=== PATIENT | male | born 1965 | race Caucasian/White ===

== ENCOUNTER 2019-11-27 17:47 | Inpatient (IN) | payer BC ==
--- NOTE | 2019-11-27 22:36 | ED ---
Abdominal Pain/Male - HPI Summary HPI Summary: 54 year old M presenting [place] [facility] accompanied by complains of worsening RUQ pain and right flank pain x6 days. Patient reports weakness and difficulty ambulating secondary to the pain. He reports nausea which is worse with palpation of the abdomen, and decreased appetite. He denies vomiting, diarrhea, dysuria. Patient last ate 1999 today 11/27/2019. The patient rates the pain 5/10 in severity. Symptoms aggravated by palpation of abdomen. Symptoms alleviated by nothing. Patient states he had a gallstone stuck in his pancreas 14 years ago which required a procedure to have dislodged done [place] [facility] Patient notes that his current symptoms are similar to then. Cholecystectomy 27 years ago. Hx pancreatitis. Hx diabetes, hypertension, hypercholesterolemia. Hx [place] 13 years ago. Medications reviewed. Allergies noted. No alcohol. No smoking. - History of Current Complaint Chief Complaint: EDAbdPain Stated Complaint: RT FLANK PAIN PER PT Time Seen by Provider: 11/27/19 22:29 Hx Obtained From: Patient Onset/Duration: Lasting Days - 6, Still Present Timing: Constant Severity Currently: Moderate Pain Intensity: 7 Pain Scale Used: 0-10 Numeric Location: Discrete At: RUQ, Flank - right Aggravating Factor(s): Other: - palpation of abdomen Alleviating Factor(s): Nothing Associated Signs And Symptoms: Positive: Negative - vomiting, diarrhea, dysuria , Other - nausea, decreased appetite - Allergies/Home Medications Allergies/Adverse Reactions: Allergies Allergy/AdvReac Type Severity Reaction Status Date / Time amoxicillin Allergy Anaphylatic Verified 11/27/19 18:00 Shock PMH/Surg Hx/FS Hx/Imm Hx Endocrine/Hematology History: Reports: Hx Diabetes, Other Endocrine/ Hematological Disorders - hyperlipidemia Cardiovascular History: Reports: Hx Hypercholesterolemia, Hx Hypertension, Hx Myocardial Infarction GI History: Reports: Other GI Disorders - pancreatitis, gallstones Neurological History: Denies: Hx Seizures - Surgical History Surgery Procedure, Year, and Place: cholecystectomy 1992 Infectious Disease History: No Infectious Disease History: Denies: Traveled Outside the [place] in Last 30 Days - Family History Known Family History: Positive: Cardiac Disease - father [place] - Social History Alcohol Use: None Substance Use Type: Reports: None Hx Tobacco Use: No Smoking Status (MU): Never Smoked Tobacco Review of Systems Positive: Abdominal Pain - RUQ, Nausea, Other - decreased appetite. Negative: Vomiting, Diarrhea Positive: flank pain - right. Negative: dysuria All Other Systems Reviewed And Are Negative: Yes Physical Exam - Summary Physical Exam Summary: Appearance: Well-appearing, Well-nourished, lying in bed comfortably Skin: Warm, dry, no obvious rash Eyes: sclera anicteric, no conjunctival pallor ENT: mucous membranes moist, pharynx appears normal Neck: Supple, nontender Respiratory: Clear to auscultation, no signs of respiratory distress Cardiovascular: Normal S1, S2. No murmurs. Normal distal pulses in tibial and radial bilaterally. Abdomen: Soft, nontender, normal active bowel sounds present Musculoskeletal: Normal, Strength/ROM Intact Neurological: A&Ox3, awake and alert, mentation is normal, speech is fluent and appropriate Psychiatric: affect is normal, does not appear anxious or depressed Triage Information Reviewed: Yes Vital Signs On Initial Exam: Initial Vitals Temp Pulse Resp BP Pulse Ox 97.0 F 89 18 151/97 95 11/27/19 17:58 11/27/19 17:58 11/27/19 17:58 11/27/19 17:58 11/27/19 17:58 Vital Signs Reviewed: Yes Procedures - Sedation Patient Received Moderate/Deep Sedation with Procedure: No Diagnostics - Vital Signs Vital Signs Temp Pulse Resp BP Pulse Ox 11/27/19 21:56 97.6 F 97 18 146/104 94 11/27/19 19:57 98.3 F 94 20 133/85 94 11/27/19 17:58 97.0 F 89 18 151/97 95 - Laboratory Result Diagrams: 11/27/19 22:31 11/28/19 03:02 Lab Statement: Any lab studies that have been ordered have been reviewed, and results considered in the medical decision making process. - CT ABD/PEL CT Interpretation Completed By: Radiologist Summary of CT Findings: 1. No CT findings to correlate with patient's symptomatology. 2. Right middle lobe pulmonary nodule. Based on current Chantal criteria, if low risk no followup indicated. 3. Indeterminate left adrenal nodule. Recommend adrenal CT. (Dino Hernandez, ACR. White Paper, 2017). ED PHYSICIAN HAS REVIEWED THIS REPORT. Re-Evaluation - Re-Evaluation First Eval Re-Evaluation Time: 23:00 Comment: aware of sodium 118 Abdominal Pain Male Course/Dx - Course Course Of Treatment: 54 y/o M with PMHx pancreatitis, diabetes, hypertension, hypercholesterolemia, [place], and PSHx cholecystectomy complains of worsening RUQ pain, right flank pain, weakness, difficulty ambulating, nausea, decreased appetite x6 days. Patient states he had a gallstone stuck in his pancreas 14 years ago which required a procedure to have dislodged. Current symptoms are similar to then. No alcohol. No smoking. Physical exam unremarkable. Bloodwork results with no significant abnormalities except for sodium 118, chloride 88, carbon dioxide 20, creatinine 1.66, glucose 240, total bilirubin 1.30, alkaline phosphatase 107, lipase 98. Toxicology results with no significant abnormalities. ABD/PEL CT shows per radiologist: 1. No CT findings to correlate with patient's symptomatology. 2. Right middle lobe pulmonary nodule. Based on current Chantal criteria, if low risk no followup indicated. 3. Indeterminate left adrenal nodule. Recommend adrenal CT. (Dino Hernandez, ACR. White Paper, 2017). In the ED course, the patient was given normal saline fluids. Spoke with Dr. Cerna hospitalist who agrees to admit patient. - Diagnoses Provider Diagnoses: Abdominal pain, Acute kidney injury, Hyponatremia - Provider Notifications Discussed Care Of Patient With: Theresa Cerna Time Discussed With Above Provider: 02:20 Instructed by Provider To: Admit As Inpatient Discharge ED - Sign-Out/Discharge Documenting (check all that apply): Patient Departure - Discharge Plan Condition: Stable Disposition: ADMITTED TO [facility] - Billing Disposition and Condition Condition: STABLE Disposition: Admitted to [facility] - Attestation Statements Document Initiated by Sameer: Yes Documenting Scribe: Rachael Green Provider For Whom Sameer is Documenting (Include Credential): MD Chava Salazaribmarkell Attestation: Rachael Wynn, scribed for Adolfo Rose MD on 11/28/19 at 0542. Scribe Documentation Reviewed: Yes Provider Attestation: The documentation as recorded by the Rachael escoto accurately reflects the service I personally performed and the decisions made by , Adolfo Rose MD Status of Scribe Document: Viewed
[2019-11-27 23:05] LABS: Alcohol < 10 mg/dL (<10)
[2019-11-27 23:33] LABS: Albumin 4.6 g/dL (3.2-5.2); Albumin/Globulin Ratio 1.7 (1-3); Alkaline Phosphatase 107 U/L (34-104); Anion Gap 10 mmol/L (2-11); CO2 Carbon Dioxide 20 mmol/L (22-32); Chloride 88 mmol/L (101-111); EGFR African American 52.7 (>60); EGFR Non-African American 43.6 (>60); Globulin 2.7 g/dL (2-4); Glucose 240 mg/dL (70-100); Sodium 118 mmol/L (135-145); Total Protein 7.3 g/dL (6.4-8.9)
[2019-11-27 23:37] LABS: Hematocrit 42 % (42-52); Mean Corpuscular Volume 85 fL (80-94); Mean Platelet Volume 8.5 fL (7.4-10.4); Nucleated Red Blood Cells % 0.1; Platelet Count 332 10^3/uL (150-450); Red Blood Count 4.95 10^6 /uL (4.18-5.48); Red Cell Distribution Width 14 % (10-15); White Blood Count 8.2 10^3/uL (3.5-10.8)
[2019-11-27 23:40] LABS: Mean Corpuscular HGB Conc 34 g/dL (31-36); Mean Corpuscular Hemoglobin 28 pg (27-31)
[2019-11-28] MEDS ORDERED: Iodixanol* (CONTRAST) 320 MG/ML 100 ML SDV IV ONE (00:03)
[2019-11-28] MEDS: NS 0.9% 1000 ML** 2,000 ML IV ONE ×2 (00:08→01:05)
[2019-11-28 01:47] LABS: BUN/Creatinine Ratio 13.3 (8-20); Blood Urea Nitrogen 22 mg/dL (6-24)
[2019-11-28 02:38] LABS: ALT 23 U/L (7-52)
[2019-11-28] MEDS ORDERED: Ondansetron INJ* 2 MG/ML VIAL IV PRN (02:48)
[2019-11-28] MEDS ORDERED: Morphine INJ* 2 MG/ML 1 ML SYRINGE (TWO MG - NEW SYRINGE VERSION) IV PRN (02:48)
[2019-11-28] MEDS ORDERED: Dextrose 50% Syringe 50 ML* 25 GM/50 ML SYRINGE IV PUSH PRN (02:58)
[2019-11-28] MEDS ORDERED: NS 0.9% 1000 ML** 1,000 ML IV SCH (03:00)
[2019-11-28 03:30] LABS: Anion Gap 6 mmol/L (2-11); CO2 Carbon Dioxide 19 mmol/L (22-32); Chloride 95 mmol/L (101-111); Sodium 120 mmol/L (135-145)
[2019-11-28 03:43] LABS: Cholesterol 836 mg/dL; Triglycerides 6389 mg/dL
[2019-11-28 03:48] LABS: HDL Cholesterol 25.2 mg/dL
--- NOTE | 2019-11-28 05:05 | HP ---
CC: Dr. Degroot * HISTORY AND PHYSICAL: DATE OF ADMISSION: 11/28/19 PRIMARY CARE PROVIDER: Dr. Degroot. CHIEF COMPLAINT: Abdominal pain and weakness. HISTORY OF PRESENT ILLNESS: Mr. Bucio is a 54-year-old male, who has a history of type 2 diabetes, hypertension, hyperlipidemia, and anxiety, who presented to the emergency room with complaints of pain in the epigastrium and in the back. The patient states that his symptoms began this past , 11/22/19. He states the pain comes and goes. He notes that it is worse with eating but only slightly so. There is otherwise no rhyme or reason to the pain coming on. On Tuesday morning, 11/27/19, the patient noted while driving to work that the pain was more severe. He felt that something was not right. He states that he worked all day but felt very weak. Typically, he walks around a lot, however, did not feel he was able to do so on 11/27/19. The patient denies any fevers or chills. He denies any alcohol use. He has not had a recent lipid panel. He does not feel dizzy. The patient does state that he had pancreatitis in 2000 and this feels similar. PAST MEDICAL HISTORY: 1. Hypertension. 2. Hyperlipidemia. 3. Type 2 diabetes. 4. Anxiety. PAST SURGICAL HISTORY: 1. Cholecystectomy. 2. Surgery to the left side of the skull as a teenager. MEDICATIONS: 1. Metformin. 2. Lisinopril. 3. Victoza. 4. Celexa 40 mg p.o. daily. The patient does not know the doses of his other medications. ALLERGIES: AMOXICILLIN. FAMILY HISTORY: Mom at the age of 68. She had both CVA and coronary disease. Dad at the age of 68 as well. He also had coronary disease and had a CVA. SOCIAL HISTORY: The patient does not smoke. He does not drink. 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 He is . He has 2 children. His , Kavita, would be his healthcare proxy. REVIEW OF SYSTEMS: Complete 11-system review of systems is obtained. Pertinent positives and negatives are as per HPI and otherwise negative. PHYSICAL EXAMINATION GENERAL: The patient is a well-developed, middle-aged male, seen sleeping in the stretcher, awakening easily to voice and in no acute distress. VITAL SIGNS: Blood pressure 147/75, pulse 73, respirations 18, temp 97.6, O2 sat 95% on room air. HEENT: Pupils are equal. Extraocular muscles are intact. Oropharynx is clear and moist. There is no submandibular, cervical, or supraclavicular adenopathy. PULMONARY: Lungs are clear to auscultation bilaterally. CARDIAC: Normal S1, S2. Regular rate and rhythm. I do not appreciate any murmurs. There is no lower extremity edema. ABDOMEN: Bowel sounds are present. Abdomen is soft, nontender, nondistended. MUSCULOSKELETAL: There is no cyanosis or clubbing of the digits. There is full active range of motion of all 4 extremities. NEURO: Cranial nerves II through XII are grossly intact. Sensation is intact to light touch throughout. Strength is 5/5 and symmetric in both upper and lower extremities bilaterally. PSYCH: The patient is alert. He is oriented x3. Affect appears appropriate. SKIN: Visible areas of skin are warm, dry, and without rash. DIAGNOSTIC STUDIES/LAB DATA: WBC 8.2, hemoglobin 14.0, hematocrit 42, platelets 332. Sodium 118, potassium unable to be performed, chloride 88, CO2 20, BUN 22, creatinine 1.66, glucose 240, calcium 9.0. Bilirubin 1.3, AST not able to be performed, ALT 23, alk phos 107. Albumin 4.6. Lipase 98. Serum alcohol less than 10. CT abdomen and pelvis: The liver is normal. There is no mass. There is a surgically absent gallbladder. There is no intra or extrahepatic biliary dilation. The pancreas is normal without any ductal dilatation. There is a left adrenal nodule measuring 2.2 cm in 82 Hounsfield units. There is no right adrenal nodule. Stomach is incompletely distended but grossly normal. There is normal caliber small bowel. There are no colonic masses or segmental wall thickening. There is a normal caliber appendix without wall thickening. There is a right middle lobe pulmonary nodule. It is recommended that the patient have an adrenal CT to further evaluate that incidental finding. ASSESSMENT AND PLAN: Mr. Bucio is a 54-year-old male who has a history of hypertension, hyperlipidemia, type 2 diabetes, and anxiety, who presented to the emergency room with complaints of intermittent abdominal pain over the last approximately 1 week as well as weakness and was found to have hyponatremia. 1. Hyponatremia: This is the patient's biggest issue at this point. He has received 2 L of fluid in the emergency room. His sodium will be rechecked now. I suspect his hyponatremia is secondary to the volume depletion as the patient 's creatinine is also elevated. I will, however, add serum osm to labs obtained in the emergency room. Additionally, he will have urine osm and urine sodium to help identify the cause of his hyponatremia. It is unclear how long he was hyponatremic; therefore, we must be cautious in raising the sodium level. I will put the patient on a clear liquid diet for now. He will have p.r.n. morphine. I am going to get a followup lipase later today. 2. Abdominal pain: The cause of this pain is not completely clear. His lipase is very mildly elevated. I doubt pancreatitis as I would expect that the patient would have persistent pain and not periods of time where there was no pain. If his pain returns, GI or surgical consultation could be requested. 3. Type 2 diabetes: The patient states that he takes metformin at home. I am holding this for now. He will be placed on a lispro sliding scale q.a.c. and h.s. 4. Hypertension: Pressures are moderately elevated at this time. I am holding his usual dose of lisinopril. This can likely be added back relatively soon. Accurate medication list will need to be obtained. 5. Hyperlipidemia: I am checking a lipid profile. He does not remember the name of the medication that he takes for his cholesterol. 6. Anxiety: We will continue his usual dose of Celexa. 7. DVT prophylaxis: According to the Adult Thrombosis Prophylaxis Risk Factor Assessment Guide, the patient has a total risk factor score of 2, making him moderate risk. He will be placed on Lovenox 40 mg subcutaneous daily for DVT prophylaxis. 8. Code status is full. TIME SPENT: Sixty-five minutes was spent admitting this patient. [id number]/[facility] #: [id number] ISA
[2019-11-28 07:56] LABS: LDL Cholesterol Direct 97 mg/dL
[2019-11-28] MEDS: Citalopram TAB* 40 MG PO SCH (08:47)
[2019-11-28] MEDS: Insulin LISPRO* 1 UNITS UNIT SUBCUT SCH ×4 (08:48→21:09)
[2019-11-28] MEDS ORDERED: Lactated Ringers 1000 ML Bag* 1,000 ML IV ONE (09:21)
--- NOTE | 2019-11-28 09:55 | PN ---
Subjective Date of Service: 11/28/19 Interval History: Pt has had epigastric pain radiating to back when ever he eats x 1 week. Regular BM's Pain is better today, denies nausea Unsure if his lipid profile was ever checked before Objective Active Medications: Citalopram Hydrobromide (Celexa Tab*) 40 mg PO DAILY [facility] Last Admin: 11/28/19 08:47 Dose: 40 mg Dextrose (D50w Syringe 50 Ml*) 12.5 gm IV PUSH .FOR FS < 60 - SS PRN PRN Reason: FS < 60 Enoxaparin Sodium (Lovenox(*)) 40 mg SUBCUT Q24H [facility] Fenofibrate (Tricor) 54 mg PO DAILY [facility] Lactated Ringer's (Lactated Ringers 1000 Ml Bag*) 1,000 mls @ 100 mls/hr IV ONCE ONE Stop: 11/28/19 19:20 Last Admin: 11/28/19 09:39 Dose: 100 mls/hr Insulin Human Lispro (Humalog*) 0 units SUBCUT ACHS [facility]; Protocol Last Admin: 11/28/19 08:48 Dose: 4 units Morphine Sulfate (Morphine Inj (Syringe))*) 2 mg IV Q4H PRN PRN Reason: PAIN - SEVERE Ondansetron HCl (Zofran Inj*) 4 mg IV Q6H PRN PRN Reason: NAUSEA Vital Signs - 8 hr 11/28/19 11/28/19 11/28/19 02:00 02:22 02:32 Temperature Pulse Rate 67 71 73 Respiratory Rate Blood Pressure 150/92 147/75 (mmHg) O2 Sat by Pulse 95 95 95 Oximetry 11/28/19 11/28/19 11/28/19 03:00 03:02 03:32 Temperature Pulse Rate 68 70 71 Respiratory Rate Blood Pressure 133/76 152/96 (mmHg) O2 Sat by Pulse 95 94 92 Oximetry 11/28/19 11/28/19 11/28/19 04:00 04:02 04:32 Temperature Pulse Rate 73 72 Respiratory Rate Blood Pressure 151/90 145/94 (mmHg) O2 Sat by Pulse 94 92 Oximetry 11/28/19 11/28/19 11/28/19 05:02 05:09 07:20 Temperature 98 F Pulse Rate 75 Respiratory 16 18 18 Rate Blood Pressure 149/94 (mmHg) O2 Sat by Pulse 96 Oximetry 11/28/19 11/28/19 07:39 08:15 Temperature Pulse Rate 68 Respiratory Rate Blood Pressure 130/82 (mmHg) O2 Sat by Pulse 96 Oximetry Oxygen Devices in Use Now: None Appearance: 54 yo M in nAD, aAOx3 Eyes: No Scleral Icterus, PERRLA Ears/Nose/Mouth/Throat: NL Teeth, Lips, Gums, Mucous Membranes Moist Neck: NL Appearance and Movements; NL JVP Respiratory: Symmetrical Chest Expansion and Respiratory Effort, Clear to Auscultation Cardiovascular: NL Sounds; No Murmurs; No JVD, RRR Abdominal: - - epigastric tenderness, no rebound, no guarding, BS+ Lymphatic: No Cervical Adenopathy Extremities: No Edema Skin: No Rash or Ulcers, No Nodules or Sclerosis Neurological: Alert and Oriented x 3, NL Muscle Strength and Tone Result Diagrams: 11/27/19 22:31 11/28/19 03:02 Assess/Plan/Problems-Billing Assessment: 54 yo M with h/o DM, cholecystectomy and later on pancreatitis related to CBD obstruction with stone s/p ERCP - Patient Problems (1) Acute pancreatitis Comment: mild with triglycerides of >6000-mary the cause of the problem CT shows no CBD obstrution, but incidental 2.2 cm adrenal nodule and 4 mm lung nodule -cont clears PO -cont IVF -start Tricor (2) DM2 (diabetes mellitus, type 2) Comment: holding metformin -start Lantus and ISS (3) High triglycerides Comment: mary familial triglyceridemia: both parents in their 60's due to vascular complications cont tricor, could add on Lipitor cont IVF and glucose control check [id number] DM control likely contributed (4) Hyponatremia Comment: partially due to dehydration and partialy due to pseudohyponatremia ( corrrected Na level with condiseration fo triglycerides of >6000 is at approx 132 today) (5) DVT prophylaxis Comment: lovenox Status and Disposition: inpatient
[2019-11-28] MEDS: Insulin GLARGINE(*) 1 UNITS UNIT SUBCUT SCH (10:19)
[2019-11-28 11:34] LABS: Urine Appearance Clear; Urine Bilirubin Negative (Negative); Urine Blood Negative (Negative); Urine Color Straw; Urine Glucose 3+(>=500 mg/dL) (Negative); Urine Ketones Negative (Negative); Urine Nitrite Negative (Negative); Urine Protein Negative (Negative); Urine Specific Gravity 1.015 (1.010-1.030); Urine Urobilinogen Negative (Negative)
[2019-11-28 11:42] LABS: Urine Benzodiazepine Screen None Detected (None Detect); Urine Opiates Screen None Detected (None Detect)
[2019-11-28 12:13] LABS: BUN/Creatinine Ratio 17.1 (8-20); Blood Urea Nitrogen 14 mg/dL (6-24); CO2 Carbon Dioxide 21 mmol/L (22-32); Calcium 7.9 mg/dL (8.6-10.3); Chloride 96 mmol/L (101-111); EGFR African American 118.9 (>60); EGFR Non-African American 98.3 (>60); Glucose 243 mg/dL (70-100); Sodium 123 mmol/L (135-145)
[2019-11-28 12:14] LABS: Anion Gap 6 mmol/L (2-11)
[2019-11-28 16:47] LABS: CO2 Carbon Dioxide 22 mmol/L (22-32); Chloride 98 mmol/L (101-111); EGFR African American 131.8 (>60); EGFR Non-African American 108.9 (>60); Glucose 201 mg/dL (70-100); Sodium 125 mmol/L (135-145)
[2019-11-28 17:16] LABS: Blood Urea Nitrogen 12 mg/dL (6-24)
[2019-11-28 17:17] LABS: Anion Gap 5 mmol/L (2-11)
[2019-11-28] MEDS: Acetaminophen TAB* 325 MG PO PRN (20:53)
[2019-11-28] MEDS ORDERED: Enoxaparin(*) 40 MG/0.4 ML SYR SUBCUT SCH (22:00)
[2019-11-29 06:47] LABS: Albumin 3.6 g/dL (3.2-5.2); Albumin/Globulin Ratio 1.5 (1-3); Calcium 8.3 mg/dL (8.6-10.3); Globulin 2.4 g/dL (2-4)
[2019-11-29 06:48] LABS: ALT 21 U/L (7-52); Alkaline Phosphatase 80 U/L (34-104); Anion Gap 6 mmol/L (2-11); BUN/Creatinine Ratio 11.1 (8-20); Blood Urea Nitrogen 12 mg/dL (6-24); CO2 Carbon Dioxide 24 mmol/L (22-32); Chloride 99 mmol/L (101-111); EGFR African American 86.5 (>60); EGFR Non-African American 71.5 (>60); Glucose 218 mg/dL (70-100); Sodium 129 mmol/L (135-145); Triglycerides 4396 mg/dL
[2019-11-29 07:59] VITALS: BP 160/90
[2019-11-29] MEDS: Citalopram TAB* 40 MG PO SCH (09:26)
[2019-11-29] MEDS: Insulin GLARGINE(*) 1 UNITS UNIT SUBCUT SCH (09:27)
[2019-11-29] MEDS: Insulin LISPRO* 1 UNITS UNIT SUBCUT SCH (09:27)
[2019-11-29] MEDS: Acetaminophen TAB* 325 MG PO PRN (09:34)
--- NOTE | 2019-11-29 10:14 | DS ---
DISCHARGE SUMMARY: ADDENDUM: ADDENDUM: Please note that on the day of discharge, the patient had minimal epigastric tenderness and he did not have any abdominal pain that started when eating. Over the course of his hospital stay, he had very mild symptoms of pancreatitis with lipase only slightly elevated at admission. Due to that, aggressive management with insulin for his mild pancreatitis and triglyceridemia was not instituted. Please also note that the patient was noted to have one potassium level of 5.9, but the other levels were not able to be done due to hemolysis. The 5.9 obtained on 11/28/19 also thought to be due to hemolyzed specimen. At this point, we are unable to provide specific potassium level at discharge, but there is no suggestion in the patient's clinical course that he is hyperkalemic. Due to that, his JEREMÍAS inhibitor can be restarted at discharge. [id number]/[facility] #: [id number] MTDD
--- NOTE | 2019-11-29 11:48 | DS ---
ADDENDUM IS NOW INCLUDED ON THIS REPORT CC: Dr. Degroot * DISCHARGE SUMMARY: DATE OF ADMISSION: 11/28/19 DATE OF DISCHARGE: 11/29/19 PRIMARY CARE PROVIDER: Dr. Degroot. DISCHARGE DIAGNOSES: 1. Acute pancreatitis due to hypertriglyceridemia. 2. Uncontrolled diabetes type 2 with hemoglobin of A1c noted to be at 12.9. 3. 2.2 cm left adrenal nodule that needs to be further evaluated with a dedicated CT of the adrenals. 4. A 4 mm lung nodule noted incidentally on CT of the abdomen and pelvis, likely no followup required. SECONDARY DIAGNOSES: 1. Hypertension. 2. Hyperlipidemia. 3. Diabetes type 2. 4. Anxiety. 5. Status post cholecystectomy. 6. History of pancreatitis, was related to common bile duct obstruction in the past. MEDICATIONS AT DISCHARGE: 1. Lipitor 20 mg daily. 2. Fenofibrate 54 mg daily. 3. Glyburide 2.5 mg daily. 4. Metformin 1000 mg b.i.d. 5. Lisinopril 10 mg daily. 6. Celexa 40 mg daily. LABORATORY DATA AND STUDIES PERFORMED DURING HOSPITAL STAY: On 11/29/19, sodium of 129, potassium unable to obtain due to high triglycerides, chloride of 99, carbon dioxide of 24, BUN 12, creatinine 1.08. Liver function tests are unremarkable apart from AST that was unable to be obtained due to high triglycerides. Triglyceride level was 4396 on day of discharge and on admission it was 6389. Hemoglobin A1c was 12.9. CBC on admission showed white blood cell count of 8.2, hemoglobin 14, hematocrit 42, platelets of 336. Lipase at admission was 98; on 11/28/19, it was 71. CT of the abdomen and pelvis obtained on 11/27/19, impression: "No CT findings to correlate with patient's symptomatology. Right middle lobe pulmonary nodule ; based on current criteria, it is low risk, no followup indicated, it was 0.4 cm. Indeterminate left adrenal nodule measuring 2.2 cm and 82 Hounsfield units. Recommend adrenal CT for further evaluation. HOSPITALIZATION COURSE: Maximo Bucio is a 54-year-old male with history of diabetes, hyperlipidemia, who was admitted to the hospital complaining of several days of epigastric pain radiating to the back. The patient was noted to have high triglyceride level and dehydration and developed hyponatremia. Part of the hyponatremia was pseudohyponatremia due to high triglyceride level. The patient was treated with insulin throughout the hospital stay. He was placed on Tricor and also started on Lipitor at discharge. His hemoglobin A1c was noted to be 12.9 and a nutritional consult was obtained. The patient was educated about a low fat and diabetic diet. He also was advised to lose weight. He is going to be started on glyburide at the time of discharge, but with hemoglobin A1c of 12.9 and high triglycerides, it is possible that he will need to be treated with insulin in the future if he does not control his diet and lose weight. The patient was educated about that and he is going to be following up with Dr. Degroot in 4 to 7 days. The patient has incidental findings on the CT of 2.2 cm left adrenal nodule that needs to be followed up with dedicated CT of the adrenals, which can be done as an outpatient. His 4 mm lung nodule likely does not need to be followed up since the patient has not smoked in his life and there is no family history of lung cancer. By the time of discharge, the patient still has mild epigastric tenderness on palpation. He also has tenderness right on palpation of his right scapular region likely related to musculoskeletal problem. He is recommended to be on a bland diet for 2 days and then advance as tolerated to diabetic and low-fat diet. PHYSICAL EXAM AT THE TIME OF DISCHARGE: Blood pressure of 158/89, heart rate of 66 and regular, respiratory rate 12, oxygen saturation 96% on room air, temperature 98.6. General: The patient is a pleasant 54-year-old male who is in no acute distress. The patient is alert and oriented x3. HEENT: Head: Atraumatic, normocephalic. Eyes: Pupils equal and reactive to light and accommodation. Oropharynx clear. Mucosa moist. Neck: Supple. No JVD. No bruits bilaterally. Cardiovascular: Regular rate and rhythm. No murmur. Respiratory: Clear to auscultation bilaterally. Abdomen: Soft, mildly tender in the epigastric region. No rebound, no guarding. Bowel sounds present in all 4 quadrants. Extremities: There is no edema. Pulses +2 bilaterally. No clubbing or cyanosis. On palpation of the back, the patient has tenderness on palpation of one of the back muscles overlying the right scapula. Psychiatric evaluation: Pleasant, cooperative with evaluation, oriented x3, with no evidence of anxiety or depression. Please note that this is a short summary of the patient's hospital stay. Please refer to further medical records for details. TIME SPENT: Approximately 45 minutes was spent on the patient's discharge. ADDENDUM: Please note that on the day of discharge, the patient had minimal epigastric tenderness and he did not have any abdominal pain that occurred when eating. Over the course of his hospital stay, he had very mild symptoms of pancreatitis with lipase only slightly elevated at admission. Due to that, aggressive management with insulin for his mild pancreatitis and triglyceridemia was not instituted. Please also note that the patient was noted to have one potassium level of 5.9, but the other levels were not able to be done due to hemolysis. The 5.9 obtained on 11/28/19 also thought to be due to hemolyzed specimen. At this point, we are unable to provide specific potassium level at discharge, but there is no suggestion in the patient's clinical course that he is hyperkalemic. Due to that, his JEREMÍAS inhibitor can be restarted at discharge. [id number]/[facility] #: [id number] A- [id number]/[facility] #: [id number] ISA
--- NOTE | 2019-12-06 10:15 | DS ---
DISCHARGE SUMMARY: ADDENDUM: DISPOSITION AT DISCHARGE: Home. CONDITION AT DISCHARGE: Stable. [id number]/[facility] #: [id number] ISA
== END 2019-11-29 10:55 | disposition home or self-care (01) | DRG 282 ==
LOC: ED 17:47 → INTOOBSV 11-28 02:48 → OBSVTOIN 11-28 02:48 → SSU 11-28 02:48
PROVIDERS: ADMIT Hospitalist; ATTEND Internal Medicine
DX: K85.80 Other acute pancreatitis without necrosis or infection (principal); E87.1 Hypo-osmolality and hyponatremia; E78.1 Pure hyperglyceridemia; E86.0 Dehydration; E78.00 Pure hypercholesterolemia, unspecified; E11.9 Type 2 diabetes mellitus without complications; E27.8 Other specified disorders of adrenal gland; R91.1 Solitary pulmonary nodule; I10 Essential (primary) hypertension; F41.9 Anxiety disorder, unspecified; Z90.49 Acquired absence of other specified parts of digestive tract; Z87.19 Personal history of other diseases of the digestive system; Z79.84 Long term (current) use of oral hypoglycemic drugs; I25.2 Old myocardial infarction; Z88.0 Allergy status to penicillin
CPT/HCPCS: 36415; 74177; 80048; 80051; 80053; 80061; 80307; 80320; 81003; 83036; 83690; 83721; 83930; 84300; 84478; 85025; 99284; A9270-GY; G0480; J1650; Q9967

== ENCOUNTER 2024-05-22 14:21 | Observation (INO) ==
[2024-05-22 16:28] LABS: ABS Basophils 0.1 10^3/uL (0.0-0.1); ABS Eosinophils 0.6 10^3/uL (0.0-0.5); ABS Lymphocytes 2.2 10^3/uL (1.0-4.8); ABS Monocytes 1.3 10^3/uL (0.0-1.1); ABS Neutrophils 4.1 10^3/uL (1.5-7.6); Eosinophil % 7.6 %; Hematocrit 34.2 % (38-53); Hemoglobin 11.7 g/dL (13.2-16.3); Mean Corpuscular Hemoglobin 28.5 pg (27-33); Mean Corpuscular Hgb Conc 34.3 g/dL (31-36); Mean Corpuscular Volume 83.3 fL (80-97); Mean Platelet Volume 7.5 fL (7.5-11.2); Platelet Count 429 10^3/uL (150-450); Red Blood Count 4.11 10^6/uL (4.06-5.63); Red Cell Distribution Width 14.8 % (12-17); White Blood Count 8.3 10^3/uL (3.6-10.2)
[2024-05-22 17:19] LABS: Albumin 3.6 g/dL (3.2-5.2); Albumin/Globulin Ratio 1.2 (1-3); C Reactive Protein 122.98 mg/L (<8.01); Calcium 8.5 mg/dL (8.6-10.3); Creatinine, Serum 0.62 mg/dL (0.67-1.17); Globulin 2.9 g/dL (2-4); Potassium 3.7 mmol/L (3.5-5.0); Total Bilirubin 0.5 mg/dL (0.2-1.0); Total Protein 6.5 g/dL (6.4-8.9); eGFR CKD-EPI 110.8 (>60)
[2024-05-22] MEDS ORDERED: Dextrose 50% Syringe 50 ml 25 GM/50 ML SYRINGE IV PUSH PRN (17:54)
[2024-05-22] MEDS ORDERED: Zosyn per Pharmacy NOTE FOLLOW UP SCH (18:00)
[2024-05-22] MEDS ORDERED: Cefepime ADVAN 1 GM in NS 0.9% 50 ML 50 ML IVPB SCH (18:00)
[2024-05-22] MEDS ORDERED: Vancomycin per Pharmacy 1 EA NOTE FOLLOW UP PRN (18:04)
[2024-05-22] MEDS: Cefepime 2 GM in Dextrose 2 GM/50 ML BAG IV SCH (18:24)
[2024-05-22] MEDS: Piperacillin/Tazobac 3.375 BAG 3.375 GM/100 ML BAG IV ONE (18:33)
[2024-05-22] MEDS: metroNIDAZOLE IV 500 MG/100ML 500 MG/100 ML BAG IVPB SCH (19:17)
[2024-05-22] MEDS: Vancomycin 1,500 MG in NS 0.9% 250 ml 250 ML IVPB ONE (19:30)
[2024-05-22 20:04] LABS: Erythrocyte Sed Rate 107 mm/Hr (0-19)
[2024-05-22] MEDS: Insulin GLARGINE 100 un/ml 10 ml VIAL SUBCUT SCH (22:36)
[2024-05-23] MEDS: Vancomycin 1,250 MG in NS 0.9% 250 ml 250 ML IVPB SCH (04:05)
[2024-05-23 06:01] LABS: ABS Basophils 0.1 10^3/uL (0.0-0.1); ABS Eosinophils 0.6 10^3/uL (0.0-0.5); ABS Monocytes 1.3 10^3/uL (0.0-1.1); ABS Neutrophils 4.2 10^3/uL (1.5-7.6); Eosinophil % 7.1 %; Hematocrit 34.1 % (38-53); Hemoglobin 11.7 g/dL (13.2-16.3); Lymphocyte % 24.7 %; Mean Corpuscular Hemoglobin 28.5 pg (27-33); Mean Corpuscular Hgb Conc 34.2 g/dL (31-36); Mean Corpuscular Volume 83.2 fL (80-97); Mean Platelet Volume 7.1 fL (7.5-11.2); Platelet Count 423 10^3/uL (150-450); Red Cell Distribution Width 14.6 % (12-17); White Blood Count 8.2 10^3/uL (3.6-10.2)
[2024-05-23 06:49] LABS: Calcium 8.9 mg/dL (8.6-10.3); Creatinine, Serum 0.66 mg/dL (0.67-1.17); Potassium 4.6 mmol/L (3.5-5.0); eGFR CKD-EPI 108.7 (>60)
[2024-05-23 16:11] VITALS: BP 131/72
[2024-05-23] MEDS ORDERED: Vancomycin Trough Check NOTE FOLLOW UP ONE (19:30)
== END 2024-05-23 15:48 | disposition home or self-care (01) ==
LOC: ED 14:21 → EDHOLD 14:21 → MED 05-23 12:22 → EDHOLD 05-23 12:38
PROVIDERS: ADMIT Internal Medicine; ATTEND Internal Medicine